=== PATIENT | male | born 1960 | race Caucasian/White ===

== ENCOUNTER 2017-05-03 09:50 | Emergency (ER) | payer OTHER ==
[2017-05-03 09:58] VITALS: BP 155/107; PULSE 62; TEMP 97.9; BMI 45.2
[2017-05-03] MEDS ORDERED: CYCLOBENZAPRINE HCL 10 MG TABLET (FP) PO ONE (11:04)
[2017-05-03] MEDS ORDERED: KETOROLAC TROMETHAMINE 60 MG/2 ML VIAL IM ONE (11:04)
[2017-05-03] MEDS ORDERED: KETOROLAC TROMETHAMINE 60 MG/2 ML VIAL ONE (11:07)
--- NOTE | 2017-05-03 11:11 | PDOC ---
History of Present Illness - General Chief Complaint: Injury Stated Complaint: BACK/KNEE PAIN Time Seen by Provider: 05/03/17 10:36 History Source: Patient Exam Limitations: No Limitations - History of Present Illness Initial Comments: 05/03/17 10:17 For evaluation of low back pain states over the weekend lifted a heavy piece of furniture and twisted, and had acute onset of low back pain. States is radiating down right side. Has used X VapoRub but no other medications for resolve. Denies problems with bowel or bladder, denies numbness or tingling to feet however has some radiating pain through gluteus on the right side into his sciatic area Occurred: reports: last week Severity: reports: mild, moderate Pain Location: reports: back Method of Injury: Yes: other Loss of Consciousness: no loss of consciousness Associated Symptoms (Fall): denies symptoms Past History - Travel Traveled outside of the country in the last 30 days: No (heavy lifting) Close contact w/someone who was outside of country & ill: No - Past Medical History Allergies/Adverse Reactions: Allergies Allergy/AdvReac Type Severity Reaction Status Date / Time No Known Allergies Allergy Verified 05/03/17 09:58 Home Medications: Ambulatory Orders Cyclobenzaprine HCl [Flexeril 10 mg] 10 mg PO BID PRN #14 tablet 05/03/17 COPD: No - Suicide/Smoking/Psychosocial Hx Smoking History: Never smoked Information on smoking cessation initiated: No Hx Alcohol Use: No Drug/Substance Use Hx: No Substance Use Type: None Trauma Specific PMHX - Complaint Specific PMHX Back Injury: No Neck Injury: No Review of Systems - Review of Systems Able to Perform ROS?: Yes Is the patient limited Iranian proficient: Yes Constitutional: Yes: Symptoms Reported, See HPI, Malaise HEENTM: Yes: Symptoms Reported Respiratory: Yes: See HPI. No: Symptoms reported Integumentary: Yes: Symptoms Reported All Other Systems: Reviewed and Negative *Physical Exam - Vital Signs Last Vital Signs Temp Pulse Resp BP Pulse Ox 97.9 F 62 18 155/107 100 05/03/17 09:56 05/03/17 09:56 05/03/17 09:56 05/03/17 09:56 05/03/17 09:56 - Physical Exam General Appearance: Yes: Nourished, Appropriately Dressed HEENT: positive: JESS, Normal ENT Inspection, TMs Normal, Pharynx Normal Neck: negative: Tender Respiratory/Chest: positive: Lungs Clear Gastrointestinal/Abdominal: positive: Soft. negative: Normal Bowel Sounds Musculoskeletal: positive: Normal Inspection, Decreased Range of Motion, Muscle Spasm (palpable spasm palpable spasm noted to paravertebral spinous muscles bilateral but worse on the left than the right at approximately L1-3. Unable to flex or extend at waist secondary to the spasm. Has no true bone tenderness crepitus or deformity to lumbar spine. Some radiating pain down the lateral and anterior aspect of bilateral knees that's reproduced with palpation of the spasmodic muscles), Vertebral Tenderness Extremity: positive: Normal Capillary Refill, Normal Range of Motion Integumentary: positive: Normal Color, Pale Neurologic: positive: problem manager II-XII NML intact, Fully Oriented, Alert, Normal Mood/ Affect, Normal Response, Motor Strength 5/5 Progress Note - Progress Note Progress Note: Xray negative for fractures or dislocations, spaces appear to be intact Back spasm, will treat with NSAIDs and cyclobenzaprine *DC/Admit/Observation/Transfer Diagnosis at time of Disposition: Low back strain Qualifiers: Encounter type: initial encounter Qualified Code(s): S39.012A - Strain of muscle, fascia and tendon of lower back, initial encounter - Discharge Dispostion Disposition: HOME Condition at time of disposition: Stable Admit: No - Prescriptions Prescriptions: Cyclobenzaprine HCl [Flexeril 10 mg] 10 mg PO BID PRN #14 tablet PRN Reason: spasm - Referrals - Patient Instructions Printed Discharge Instructions: DI for Back Strain or Sprain Additional Instructions: Rest, no heavy lifting or exercise until pain is resolved Hot soaks to neck and low back as often as possible/hot showers or Jacuzzis No massage or therapy until spasm is gone Continue ibuprofen 2-200 mg tablets every 6 hours for the next 3 days then as needed for pain and swelling Cyclobenzaprine 1-10mg every 8 hours as needed for spasm If not significant improvement within 24 hours with medication and rest regime, followup with private physician for change in medications and /or therapy. - Post Discharge Activity Forms/Work/School Notes: Back to Work
[2017-05-03] MEDS ORDERED: CYCLOBENZAPRINE HCL 10 MG TABLET (FP) ONE (11:32)
== END 2017-05-03 12:13 | disposition home or self-care (01) ==
LOC: JERFT 09:50
PROC: 3E0233Z Introduction of Anti-inflammatory into Muscle, Percutaneous Approach (ICD-10-PCS; principal; 2017-05-03)
DX: S39.012A Strain of muscle, fascia and tendon of lower back, initial encounter (principal); X50.0XXA Overexertion from strenuous movement or load, initial encounter; Y93.89 Activity, other specified; Y92.63 Factory as the place of occurrence of the external cause; Y99.0 Civilian activity done for income or pay
CPT/HCPCS: 72100-TC; 99281-25

== ENCOUNTER 2020-06-30 12:15 | Emergency (ER) | payer BC ==
[2020-06-30 12:22] VITALS: BP 169/69; PULSE 67; TEMP 98.2; BMI 28.3
[2020-06-30] MEDS ORDERED: ACETAMINOPHEN 325 MG TABLET (FP) PO ONE (13:36)
[2020-06-30] MEDS ORDERED: METHOCARBAMOL 500 MG TABLET PO ONE (13:36)
[2020-06-30] MEDS ORDERED: ACETAMINOPHEN 500 MG TABLET (FP) ONE (13:37)
[2020-06-30] MEDS ORDERED: METHOCARBAMOL 500 MG TABLET ONE (13:37)
== END 2020-06-30 15:31 | disposition home or self-care (01) ==
LOC: JERFT 12:15
DX: M62.830 Muscle spasm of back (principal)
CPT/HCPCS: 70450-TC; 99284-25

== ENCOUNTER 2020-11-26 06:03 | Day surgery (SDC) | payer BC ==
[2020-11-22 19:35] VITALS: BMI 28.4
[2020-11-26] MEDS ORDERED: ROCURONIUM BROMIDE 50 MG/5 ML SYRINGE ONE (07:11)
[2020-11-26] MEDS ORDERED: PROPOFOL 20 ML ONE (07:11)
[2020-11-26] MEDS ORDERED: MIDAZOLAM HCL 2 MG/2 ML SINGLE DOSE VIAL ONE (07:11)
[2020-11-26] MEDS ORDERED: EPINEPHrine/PF 1 MG/1 ML (1:1,000) AMPULE ONE (07:17)
[2020-11-26] MEDS ORDERED: BUPIVACAINE HCL/PF 0.25% (2.5MG/ML) 10 ML VIAL ONE (07:17)
[2020-11-26] MEDS ORDERED: DEXAMETHASONE SOD PHOSPHATE 4 MG/1 ML VIAL ONE (07:45)
[2020-11-26] MEDS ORDERED: KETOROLAC TROMETHAMINE 30 MG/1 ML VIAL ONE (07:45)
[2020-11-26] MEDS ORDERED: ONDANSETRON 4 MG/2 ML VIAL ONE (07:45)
[2020-11-26] MEDS ORDERED: ceFAZolin SODIUM 1 GM VIAL ONE (07:45)
[2020-11-26] MEDS ORDERED: GLYCOPYRROLATE 0.2 MG/1 ML VIAL ONE (07:45)
[2020-11-26] MEDS ORDERED: ePHEDrine SULFATE 50 MG/1 ML AMPULE ONE (07:50)
[2020-11-26] MEDS ORDERED: BUPIVACAINE HCL/PF 0.25% (2.5MG/ML) 10 ML VIAL IJ ONE ×2 (08:17→09:04)
[2020-11-26] MEDS ORDERED: ONDANSETRON 4 MG/2 ML VIAL IVPUSH PRN (09:15)
[2020-11-26] MEDS ORDERED: oxyCODONE HCL 5 MG TABLET PO PRN (09:15)
[2020-11-26 11:29] VITALS: TEMP 97.8
[2020-11-26 12:03] VITALS: BP 160/90; PULSE 62
== END 2020-11-26 11:50 | disposition home or self-care (01) ==
LOC: FASU 06:03
PROVIDERS: ATTEND Orthopaedic Surgery Sports Medicine
PROC: 0SPC04Z Removal of Internal Fixation Device from Right Knee Joint, Open Approach (ICD-10-PCS; 2020-11-26)
PROC: 0SBC4ZZ Excision of Right Knee Joint, Percutaneous Endoscopic Approach (ICD-10-PCS; principal; 2020-11-26 07:30)
PROC: 0SBC4ZZ Excision of Right Knee Joint, Percutaneous Endoscopic Approach (ICD-10-PCS; 2020-11-26 07:30)
PROC: 0SBC4ZZ Excision of Right Knee Joint, Percutaneous Endoscopic Approach (ICD-10-PCS; 2020-11-26 07:30)
DX: S83.241A Other tear of medial meniscus, current injury, right knee, initial encounter (principal); S83.281A Other tear of lateral meniscus, current injury, right knee, initial encounter; M94.261 Chondromalacia, right knee; M65.9 Synovitis and tenosynovitis, unspecified; T84.84XA Pain due to internal orthopedic prosthetic devices, implants and grafts, initial encounter; X58.XXXA Exposure to other specified factors, initial encounter; Y79.3 Surgical instruments, materials and orthopedic devices (including sutures) associated with adverse incidents; Y92.9 Unspecified place or not applicable
CPT/HCPCS: 73560-TC-RT-FY; 88300-TC; 94760; 97116-GP

== ENCOUNTER 2021-12-12 14:18 | Emergency (ER) | payer BC ==
[2021-12-12 15:11] VITALS: BP 117/72; PULSE 55; RESP 18; TEMP 98.7; BMI 29.9
[2021-12-12 17:15] LABS: THROAT:GRP A STREP NOT DETECTED (NOTDETECTED)
== END 2021-12-12 16:55 | disposition home or self-care (01) ==
LOC: JER 14:18
DX: J11.1 Influenza due to unidentified influenza virus with other respiratory manifestations (principal)
CPT/HCPCS: 0241U-QW; 87651; 99283-25